=== PATIENT | male | born 1975 | race Caucasian/White ===

== ENCOUNTER 2019-04-21 07:41 | Emergency (ER) | payer MEDICAID ==
[~2019-04-21] VITALS: Ht 175.3 cm; Wt 82.0 kg
[2019-04-21 07:45] VITALS: BP 132/84
[2019-04-21] MEDS ORDERED: acetaminophen 325mg tablet PO ONE (08:10)
== END 2019-04-21 08:24 | disposition home or self-care (01) ==
LOC: ER 07:43
DX: S93.402A Sprain of unspecified ligament of left ankle, initial encounter (principal); W22.8XXA Striking against or struck by other objects, initial encounter; Y93.89 Activity, other specified; Y92.89 Other specified places as the place of occurrence of the external cause; Y99.9 Unspecified external cause status
CPT/HCPCS: 73610; 99283